=== PATIENT | male | born 1940 | race Caucasian/White ===

== ENCOUNTER 2024-09-19 10:33 | Outpatient (CLI) | payer MEDICARE ==
--- NOTE | 2024-09-22 19:30 | CONSULTATION ---
DATE OF CONSULTATION: 09/19/2024 DICTATING PHYSICIAN: Karlene Burden M.S., [facility]-ASSISTANT SURVEYOR MODIFIED BARIUM SWALLOW STUDY REPORT REFERRING PHYSICIAN: Telly Avalos MD HISTORY OF PRESENT ILLNESS: The patient is an 84-year-old male, who consents for this evaluation. The patient's was present for this evaluation. In history obtained from the patient, the patient's , and medical records, the patient has a diagnosis of Alzheimer's disease. He has difficulty with swallowing at the dentist and a whistling sound when walking, sitting or lying down, that seemed to be an upper airway issue. The patient has been choking on food or water at least 1-2 times weekly. CURRENT DIET: The patient is currently on a regular texture, thin-liquid diet. MEDICATIONS: Aspirin 81 mg one tablet p.o. daily, atorvastatin 40 mg one tablet once daily orally, carvedilol 3.125 mg one tablet twice daily orally, finasteride 5 mg one tablet p.o. daily, memantine 5 mg one tablet p.o. daily, tamsulosin 0.4 mg one capsule p.o. daily, vitamin D3 25 mcg one capsule p.o. daily. PARAMETERS: The patient is seated in a lateral 90-degree view and administered the usual protocol of thin and nectar thick liquids, puree and solid consistencies, as well as self-regulated boluses of thin liquids from a cup. RESULTS: In the oral stage of the swallow, lingual strength is noted to be reduced as there was a rocking motion in order to collect the bolus and propel it from the anterior to the posterior oral cavity. The strength was mild to moderately reduced. The patient was also noted to have a bolus hold for 1 out of 2 of the self-regulated boluses of thin liquids from the cup, demonstrating a difficulty with that swallow initiation; however, the bolus did not spill into the pharyngeal cavity before the swallow was initiated. In the pharyngeal stage of the swallow, tongue base retraction is mildly reduced. Anterior movement of the posterior pharyngeal wall is observed. Elevation of the hyothyroid complex was accomplished with full range of motion and PES opening is within functional limits. At no time is the patient noted to penetrate or aspirate on any of the bolus sizes or consistencies. ANTERIOR, POSTERIOR VIEW: In the AP plane, the bolus splits symmetrically between the piriform sinuses and there was no proximal movement of the boluses noted. IMPRESSION: The patient demonstrates what appears to be a mild oropharyngeal stage swallowing disorder, characterized by reduced lingual strength and tongue base retraction. DIAGNOSES: R13.12, dysphagia, oropharyngeal phase; G30.9, Alzheimer's disease. PATIENT EDUCATION: Immediately following modified barium swallow study, the patient and his were able to view the results. The patient was able to see the current status of the oral motor and swallowing mechanism. They were educated on different compensatory strategies for swallowing including limiting distraction and smaller bolus sizes and sips. They were also educated on options for speech therapy to strengthen the muscles involved in swallowing and indicated they would think about it at this time. RECOMMENDATIONS: * It is recommended that the patient utilize safe swallowing strategies including limiting distractions and smaller bolus sizes and sips. * It was recommended that the patient receive swallowing therapy one time weekly for 12 weeks to improve the strength of the oral motor and swallowing mechanism. The patient and indicated they would think about it at this time. LONG-TERM GOALS: The patient will maintain adequate hydration/nutrition with optimum safety and efficiency of swallow function on p.o. intake without overt signs and symptoms of aspiration for the highest possible diet level. PROGNOSIS: Prognosis for the patient is fair considering level of family support, but also amount of cueing the patient would need to utilize. FUNCTIONAL ORAL INTAKE: The FOIS was administered to establish and document a change in the functional eating activities of this patient over time. This is a 7-point scale with 1 indicating no oral intake and totally tube dependent, and 7 indicating total oral intake with no restrictions. This patient received a 7, which indicates total oral intake with no restrictions. G-CODE: [id number]. Thank you very much for asking me to participate in the care of this kind patient. Should you have any questions regarding this evaluation or recommendations, please do not hesitate to contact me at [phone]. During this examination, 2.55 minutes of fluoroscopy time and 11.75 CAK mGy were utilized. Karlene Burden M.S., [facility]-ASSISTANT SURVEYOR TID: [id number] RECEIPT: [id number] SOB[facility] FRAUSTO
== END 2024-09-19 23:59 | disposition home or self-care (01) ==
LOC: RAD 10:33
PROVIDERS: ATTEND Family Medicine
DX: R13.10 Dysphagia, unspecified (principal)
CPT/HCPCS: 74230